=== PATIENT | male | born 1985 | race Caucasian/White ===

== ENCOUNTER 2017-08-12 10:00 | Emergency (ER) | payer BC, OTHER ==
[2017-08-12 10:08] VITALS: BP 141/80
[2017-08-12] MEDS ORDERED: MORPHINE SULFATE 10 MG/ML IV ONE (10:14)
[2017-08-12] MEDS ORDERED: Zofran 4 MG/2 ML VIAL IV ONE (10:14)
[2017-08-12] MEDS ORDERED: Sodium Chloride 0.9% 1000 ML 1,000 ML IV STA (10:14)
[2017-08-12] MEDS ORDERED: Adacel Vial IM ONE ×2 (10:15→10:22)
[2017-08-12] MEDS ORDERED: BENADRYL 50 MG/ML IV ONE (10:20)
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
[2017-08-12] MEDS ORDERED: Zofran 4 MG/2 ML VIAL ONE (10:21)
[2017-08-12] MEDS ORDERED: MORPHINE SULFATE 10 MG/ML ONE (10:22)
[2017-08-12] MEDS ORDERED: Sodium Chloride 0.9% 1000 ML 1,000 ML ONE (10:22)
[2017-08-12] MEDS ORDERED: BENADRYL 50 MG/ML ONE (10:22)
[2017-08-12] MEDS ORDERED: MORPHINE SULFATE 4 MG INJ IV ONE (11:00)
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
[2017-08-12] MEDS ORDERED: MORPHINE SULFATE 4 MG INJ ONE (11:09)
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
[2017-08-12 11:46] VITALS: PULSE 70; O2SAT 98
== END 2017-08-12 11:49 | disposition home or self-care (01) ==
LOC: ED 10:00
PROC: 2W3QX1Z Immobilization of Right Lower Leg using Splint (ICD-10-PCS; principal; 2017-08-12)
DX: S90.31XA Contusion of right foot, initial encounter (principal); V89.0XXA Person injured in unspecified motor-vehicle accident, nontraffic, initial encounter; Y92.69 Other specified industrial and construction area as the place of occurrence of the external cause; Y99.0 Civilian activity done for income or pay
CPT/HCPCS: 29515; 36000; 73590; 73610; 73630; 90471; 90715; 96360; 96374; 96375; 99284; J1200; J2270; J2405